=== PATIENT | male | born 1970 | race Caucasian/White ===

== ENCOUNTER → 2019-06-04 | Outpatient (CLI) | payer BC ==
--- NOTE | 2019-06-04 15:54 | PCVCIMAG ---
APPROVED REPORT Study performed: 06/04/2019 14:10:24 EXAM: Comprehensive 2D, Doppler, and color-flow Echocardiogram Patient Location: Echo lab Status: routine BSA: 2.14 HR: 60 bpmBP: 122/78 mmHg Rhythm: NSR Other Information Study Quality: Good Risk Factors: Cardiac Risk Factors: HTN, Hyperlipidemia, FHX of CAD 2D Dimensions IVSd: 7.88 (7-11mm)LVOT Diam: 22.09 (18-24mm) LVDd: 42.04 mm PWd: 7.62 (7-11mm)Ascending Ao: 31.02 (22-36mm) LVDs: 33.19 (25-40mm) Left Atrium: 39.91 (27-40mm) Aortic Root: 28.07 mm LV Single Plane 4CH: 60.04 % LV Single Plane 2CH: 71.31 % Biplane EF: 66.6 % Volumes Left Atrial Volume (Systole) Single Plane 4CH: 37.78 mLSingle Plane 2CH: 51.54 mL Aortic Valve AoV Peak Ketan.: 1.35 m/s AO Peak Gr.: 7.25 mmHg Mitral Valve E/A Ratio: 1.9 MV Decel. Time: 163.03 ms MV E Max Ketan.: 0.82 m/s MV A Ketan.: 0.44 m/s IVRT: 110.73 ms TDI E/Lateral E': 9.11E/Medial E': 6.31 Medial E' Ketan.: 0.13 m/s Lateral E' Ketan.: 0.09 m/s Pulmonary Valve PV Peak Gr.: 3.41 mmHg Pulmonary Vein P Vein S: 0.53 m/sP Vein A: 0.35 m/s P Vein D: 0.46 m/sP Vein A Dur.: 96.9 msec P Vein S/D Ratio: 1.15 Left Ventricle The left ventricle is normal size. There is normal LV segmental wall motion. There is normal left ventricular wall thickness. Left ventricular systolic function is normal. The left ventricular ejection fraction is within the normal range. LVEF is 60-65%. The left ventricular diastolic function is normal. Right Ventricle The right ventricle is normal size. The right ventricular systolic function is normal. Atria The left atrium size is normal. The right atrium size is normal. Aortic Valve The aortic valve is normal in structure. No aortic regurgitation is present. There is no aortic valvular stenosis. Mitral Valve The mitral valve is normal in structure. Trace mitral regurgitation. No evidence of mitral valve stenosis. Tricuspid Valve The tricuspid valve is normal in structure. There is no tricuspid valve regurgitation noted. Pulmonic Valve The pulmonary valve is normal in structure. There is no pulmonic valvular regurgitation. Great Vessels The aortic root is normal in size. IVC is normal in size and collapses >50% with inspiration. Pericardium There is no pericardial effusion. <Conclusion> 1. Normal echocardiogram with Doppler. Ejection fraction 65%. 2. The pulmonary artery systolic pressure could not be reliably ascertained. 3. No pericardial effusion.
--- NOTE | 2019-06-05 12:48 | PCVCIMAG ---
APPROVED REPORT Patient Location: Echo lab TREADMILL STRESS TEST Room #: 1 Stress Nurse: Vane Garcia RN INDICATIONS: Chest pain,family history of early onset CAD, exercise intolerence, dyslipidemia The patient exercised according to the ROCKY protocol for 12:47 mins; achieving a work level of 16.3 METS. The resting heart rate of 63 bpm chinmay to a maximum heart rate of 164 bpm. This value represents 97% of the maximal, age-predicted heart rate. The resting blood pressure of 122/78 mmHg, chinmay to a maximum blood pressure of 170/82 mmHg. The exercise test was stopped due to fatigue. Resting EKG: Sinus rhythm normal tracing Stress EKG: No dysrhythmias. No diagnostic ischemic electrocardiographic changes. Conclusion 1. Maximal treadmill exercise study negative for exercise-induced myocardial ischemia. 2. No subjective signs such as chest pain or anginal-like symptoms. No dysrhythmias. Normal hemodynamic response to exercise. 3. The study was associated with good exercise capacity (16.3 METS) and low Leung treadmill exercise score
== END | disposition home or self-care (01) ==
LOC: PCVCIMAG 13:55
PROVIDERS: ATTEND Internal Medicine
DX: I10 Essential (primary) hypertension (principal); E78.5 Hyperlipidemia, unspecified
CPT/HCPCS: 93017; 93306